=== PATIENT | male | born 1975 | race Caucasian/White ===

== ENCOUNTER 2024-10-16 16:03 | Outpatient (CLI) | payer OTHER, SELFPAY ==
--- OUTSIDE RECORDS SUMMARY | 2024-10-16 16:36 | XMS_ITS | Referral Summary ---
Author Organization [facility] Address [address] [place] [address] Care Team Providers Care Noc Analyst Name Role Phone Damon Smalls MD Primary Care Provider Allergies No known active allergies Medications DULoxetine DR (CYMBALTA) 60 mg capsule Take 1 capsule (60 mg total) by mouth daily 05/28/2023 Active levothyroxine (SYNTHROID) 25 mcg tablet Take 1 tablet (25 mcg total) by mouth daily 05/11/2023 Active sildenafiL (VIAGRA) 50 mg tablet TAKE 1 TABLET BY MOUTH ONCE DAILY NEEDED FOR SEXUAL ACTIVITY 30 MINUTES TO 4 HOURS BEFORE ACTIVITY 06/02/2023 Active oxyCODONE (ROXICODONE) 5 mg immediate release tabletIndicatio ns:Pain Take 1 tablet (5 mg total) by mouth every 4 (four) hours as needed for pain for up to 10 doses 10 tablet 06/06/2023 Active ibuprofen (ADVIL,MOTRIN) 800 mg tablet TAKE 1 TABLET BY MOUTH EVERY 8 HOURS WITH FOOD NEEDED 06/09/2023 Active Active Problems Problem Noted Date Diagnosed Date Closed fracture of hamate 06/24/2015 Dislocation of carpometacarpal joint 06/24/2015 Immunizations Name Administration Dates Next Due Tdap 06/06/2023 Social History Tobacco Use Types Packs/Day Years Used Date Smoking Tobacco: Light Smoker Smokeless Tobacco: Current Chew Tobacco Cessation:Ready to Q uit: Not Asked; Counseling Given: Not Answered Alcohol Use Standard Drinks/Week Comments Yes 24 (1 standard drink = 0.6 oz pu re alcohol) Personal Safety Answer Date Recorded Getting School Help Needed Not on file 06/30 Sex and Gender Information Value Date Recorded Sex Assigned at Not on file 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 Gender Identity Not on file Sexual Orientation Not on file Last Filed Vital Signs Vital Sign Reading Time Taken Comments Blood Pressure 116/75 06/06/2023 3:30 PM CDT Pulse 90 06/06/2023 3:30 PM CDT Temperature 36.8 ??C (98.3 ??F) 06/06/2023 1:59 PM CD T Respiratory Rate 26 06/06/2023 2:30 PM CDT Oxygen Saturation 94% 06/06/2023 3:30 PM CDT Inhaled Oxygen Concentration - - Weight 79.4 kg (175 lb) 06/06/2023 1:59 PM CDT Height 175.3 cm (5' 9 ) 06/06/2023 1:59 PM CDT Body Mass Index 25.84 06/06/2023 1:59 PM CDT Plan of Treatment Not on file Insurance WORKERS COMPENSATION GENERIC WORKERS COMPENSATION GENERIC [address] [place] [address] Care Teams Noc Analyst Relationship Specialty Start Date End Date Damon Smalls MD [address] [facility] [address] [place] [address] PCP - General Family Medicine 06/08/23
--- OUTSIDE RECORDS SUMMARY | 2024-10-16 16:37 | XMS_ITS | Clinical Summary ---
Author Organization [facility] Address [address] [place] [address] Care Team Providers Care Morning Nanny Name Role Phone Damon Smalls MD Primary [...] Name Administration Dates Next Due Tdap 06/06/2023 Family History Medical History Relation Name Comments Stroke Brother Family history of cerebrovascular accident (CVA) - (Added by TW Conv) Mental illness Father Mental proble m - (Added by TW Conv) Stroke Father Family history of cerebrovascular accident (CVA) - (Added by TW Conv) Stroke Mother Family history of cerebrovascular accident (CVA) - (Added by TW Conv) Stroke Sister Family history of cerebrovascular accident (CVA) - (Added by TW Conv) Relation Name Status Comments Brother Father Mother Sister Social History Tobacco Use Types Packs/Day Years [...] on file Legal Sex Male 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 [employer] Gender Identity Not on file Sexual Orientation Not on file Obstetrics History Last Filed Vital Signs Vital Sign Reading [...] 06/06/2023 1:59 PM CDT Plan of Treatment Health Maintenance Due Date Last Done Comments Colon Cancer Screening-Colonoscopy 1973 Depression Screening 1973 Hepatitis C Screening 1973 Prostate Cancer Screening-PSA 1973 Pneumococcal vaccine <65 (1 of 2 - PCV) 1979 Hepatitis B Screening 1991 Regular Well Visit/Exam 18-64 1991 Zoster Vaccine (1 of 2) 2023 Influenza Vaccine (#1) 2024 DTaP/Tdap/Td Vaccine (2 - Td or Tdap) 06/06/2033 Insurance WORKERS COMPENSATION GENERIC WORKERS COMPENSATION GENERIC Care Teams Morning Nanny Relationship Specialty Start Date End Date Damon Smalls MD [address] [facility] [address] [address] PCP - General Family Medicine 06/08/23
[2024-10-16 17:06] LABS: Influenza A QL RT-PCR Negative (Negative); Influenza B QL RT-PCR Negative (Negative); SARS-CoV-2 RNA PCR Negative (Negative)
== END 2024-10-16 16:04 | disposition home or self-care (01) ==
LOC: ANHLAB 16:04
PROVIDERS: PCP Family Medicine; Visit Provider Physician Assistant Medical
DX: R50.9 Fever, unspecified (principal); R05.9 Cough, unspecified; R52 Pain, unspecified; Z20.822 Contact with and (suspected) exposure to COVID-19
CPT/HCPCS: 87636